=== PATIENT | male | born 1950 | race Caucasian/White ===

== ENCOUNTER → 2017-08-24 14:42 | Outpatient (CLI) | payer MEDICARE, OTHER, SELFPAY ==
[2017-08-24 15:23] LABS: PSA,Total- Diagnostic 0.02 ng/mL (0.0-4.0)
== END ==
PROVIDERS: Family Provider Internal Medicine; PCP Internal Medicine; Visit Provider Urology
DX: C61 Malignant neoplasm of prostate (principal)
CPT/HCPCS: 36415; 84153

== ENCOUNTER → 2017-11-28 11:11 | Outpatient (CLI) | payer MEDICARE, OTHER, SELFPAY ==
[2017-11-28 12:20] LABS: PSA,Total- Diagnostic 0.01 ng/mL (0.0-4.0)
== END ==
PROVIDERS: Family Provider Internal Medicine; PCP Internal Medicine; Visit Provider Urology
DX: C61 Malignant neoplasm of prostate (principal)
CPT/HCPCS: 36415; 84153

== ENCOUNTER → 2018-03-06 09:23 | Outpatient (CLI) | payer MEDICARE, OTHER, SELFPAY ==
[2018-03-06 10:34] LABS: PSA,Total- Diagnostic < 0.01 ng/mL (0.0-4.0)
== END ==
PROVIDERS: Family Provider Internal Medicine; PCP Internal Medicine; Visit Provider Urology
DX: C61 Malignant neoplasm of prostate (principal)
CPT/HCPCS: 36415; 84153

== ENCOUNTER → 2019-04-12 08:33 | Outpatient (CLI) | payer MEDICARE, OTHER, SELFPAY ==
[2019-04-02 11:03] VITALS: BMI 30.7
[2019-04-12 10:15] LABS: AST(SGOT) 59 U/L (15-37); Alanine Aminotransfer ALT/SGPT 78 U/L (16-61); Albumin, Serum 3.7 g/dL (3.2-5.0); Alkaline Phosphatase 69 U/L (45-117); Bilirubin, Direct 0.15 mg/dL (0.00-0.30); Cholesterol 217 mg/dL (200); High Density Lipoprotein 56 mg/dL; Protein, Total 7.7 g/dL (6.4-8.2); Triglycerides 203 mg/dL; Very Low Density Lipoprotein 41 mg/dL (5-40)
== END ==
PROVIDERS: Family Provider Internal Medicine; PCP Internal Medicine; Referring Provider Internal Medicine Cardiovascular Disease; Visit Provider Internal Medicine Cardiovascular Disease
DX: E78.00 Pure hypercholesterolemia, unspecified (principal)
CPT/HCPCS: 36415; 80061; 80076

== ENCOUNTER → 2019-04-16 10:50 | Outpatient (CLI) | payer MEDICARE, OTHER, SELFPAY ==
[2019-04-02 11:03] VITALS: BMI 30.7
[2019-04-16 09:24] VITALS: BMI 30.7
--- NOTE | 2019-04-16 10:52 | ECHOCS_ITS ---
Reason For Study: PRE-OP Procedure This was a 2D Doppler, Color Flow transthoracic echocardiogram. The study was technically difficult. Contrast injection was performed. Exam performed in department. Left Ventricle Normal size and thickness. The estimated ejection fraction is 65 %. Stage 1 diastolic dysfunction. No regional wall motion abnormalities noted. Right Ventricle Normal size and thickness. Normal systolic function. Atria Normal left atrium. Normal right atrium. Normal atrial septum. Mitral Valve The mitral valve is structurally normal. No prolapse or stenosis seen. Tricuspid Valve Normal tricuspid valve. Trivial tricuspid valve insufficiency. Right ventricular systolic pressure estimated to be 24 mmHg. Aortic Valve Trisinus/trileaflet aortic valve. Aortic sclerosis, no stenosis. There is no aortic stenosis. Pulmonic Valve The pulmonic valve is not well visualized. Great Vessels Normal aortic root. Normal arch. Normal inferior vena cava. Inferior vena cava collapse with sniff. Pericardium/Pleural No pericardial effusion. Medication 22 gauge I.V. with prn adaptor inserted into right arm. Diluted definity 2.0ml given slow IV push to enhance endocardial definition. MMode/2D Measurements & Calculations RVDd: 3.0 cm Ao root diam: 3.6 cm LAV(MOD-bp): 34.5 ml LAV(MOD-bp) Indexed: 18.1 ml/m2 LAV(MOD-sp2): 35.9 ml LAV(MOD-sp4): 26.4 ml SV(MOD-sp4): 61.8 ml SV(sp4-el): 67.6 ml LVAd ap4: 31.7 cm2 EDV(MOD-sp4): 99.9 ml EDV(sp4-el): 106.8 ml LVAs ap4: 16.9 cm2 ESV(MOD-sp4): 38.1 ml ESV(sp4-el): 39.1 ml EF(MOD-sp4): 61.9 % EF(sp4-el): 63.3 % LA dimension(2D): 3.8 cm LA A4 area: 11.4 cm2 RA A4 area: 11.4 cm2 Time Measurements MV dec time: 0.25 sec Doppler Measurements & Calculations MV E max morgan: 58.2 cm/sec Lat Peak E' Morgan: 9.4 cm/sec Med Peak E' Morgan: 8.3 cm/sec MV A max morgan: 92.2 cm/sec E/E' lat: 6.2 E/E' med: 7.0 MV E/A: 0.63 Ao V2 max: 112.9 cm/sec LV V1 max: 99.2 cm/sec TR max morgan: 220.4 cm/sec Ao max P.1 mmHg LV V1 max P.9 mmHg TR max P.4 mmHg Interpretation Summary The estimated ejection fraction is 65 %. Stage 1 diastolic dysfunction. Trivial tricuspid valve insufficiency. Right ventricular systolic pressure estimated to be 24 mmHg. The study was technically difficult. There is no comparison study available. Contrast injection was performed. Ordering Physician: Abdulkadir Perea Referring Physician: IRINA MCBRIDE Performed By: Marti Samuel RDCS, RVT
== END ==
PROVIDERS: Family Provider Internal Medicine; PCP Internal Medicine; Referring Provider Internal Medicine Cardiovascular Disease; Visit Provider Internal Medicine Cardiovascular Disease
DX: Z01.810 Encounter for preprocedural cardiovascular examination (principal)
CPT/HCPCS: 93306; Q9957; A4216; C8929

== ENCOUNTER → 2019-04-18 10:17 | Outpatient (CLI) | payer MEDICARE, OTHER, SELFPAY ==
[2019-04-16 09:24] VITALS: BMI 30.7
== END ==
PROVIDERS: Family Provider Internal Medicine; PCP Internal Medicine; Referring Provider Urology; Visit Provider Urology
DX: R69 Illness, unspecified (principal)

== ENCOUNTER → 2019-04-19 12:17 | Outpatient (CLI) | payer MEDICARE, OTHER, SELFPAY ==
[2019-04-02 11:03] VITALS: BMI 30.7
[2019-04-16 09:24] VITALS: BMI 30.7
--- NOTE | 2019-04-19 12:19 | STEWCON_ITS ---
Reason For Study: Pre-Operative Stress Results Protocol: Chava Protocol Maximum Predicted HR: 149 bpm Target HR: 127 bpm % Maximum Predicted HR: 85 % DurationHeart Rate Stage (mm:ss) (bpm) BP Comment Baseline 74 158/86No Chest Pain; 5 ML Diluted Definity Given Chava Protocol Stage I 3:00 91 164/82No Chest Pain Chava Protocol Stage II 3:00 101 176/84No Chest Pain Chava Protocol Stage III 3:00 118 194/80No Chest Pain Chava Protocol Stage IV 0:45 127 / No Chest Pain; Mild Dyspnea Recovery 90 142/86No Chest Pain Stress Duration: 9:45 mm:ss Maximum Stress HR: 127 bpm METS: 12 Baseline Echocardiogram Findings The estimated ejection fraction is 65 %. Stress Echo Wall motion Data Resting WM Intermediate WM Stress WM Resting Wall Motion Wall Motion Stress No regional wall motion No regional wall motion abnormalities noted. abnormalities noted. EKG Data The baseline ECG displays normal sinus rhythm. The patient exercised according to the regular Chava protocol for a total duration of 9:45. The maximum heart rate attained was 139 beats per minute. This was 93% of maximum predicted heart rate. The patient exercised into stage 4 of the Chava protocol. During stress, there were no ST or T wave changes noted to suggest ischemia. No clinical angina was noted. Interpretation Summary The estimated ejection fraction is 65 %. Normal, adequate, treadmill echocardiogram. Negative for ischemia by EKG and echocardiographic anterior. No anginal symptoms noted. Rare PVC during recovery. Hypertensive blood pressure response to age. Average exercise capacity for age. Final LVEF is 75%. Decreased sensitivity due to poor echo windows requiring Definity agent. Test terminated due to target heart rate achieved and mild dyspnea. No complications. The study was technically difficult. Contrast injection was performed. Ordering Physician: Abdulkadir Perea Referring Physician: Sonal Grace Performed By: Melany Tejeda, DIO, RVT
== END ==
PROVIDERS: Family Provider Internal Medicine; PCP Internal Medicine; Referring Provider Internal Medicine Cardiovascular Disease; Visit Provider Internal Medicine Cardiovascular Disease
DX: Z01.810 Encounter for preprocedural cardiovascular examination (principal); R94.31 Abnormal electrocardiogram [ECG] [EKG]; I10 Essential (primary) hypertension; E78.5 Hyperlipidemia, unspecified
CPT/HCPCS: 93017; 93350; Q9957; A4216; C8928

== ENCOUNTER 2019-05-01 08:41 | Day surgery (SDC) | payer MEDICARE, OTHER, SELFPAY ==
--- NOTE | 2019-04-02 12:04 | HP_ITS ---
HPI HPI History of Present Illness Surgical H&P: Yes Details: Mr. Sheets is a very pleasant 69-year-old gentleman with a history of hypertension, hyperlipidemia, prostate cancer with Warren 7 disease, PSA was 29, complete hormone deprivation therapy and radiation therapy. Status post placement of bladder seeds, gross hematuria, who is here for preoperative stratification after he was found to have an abnormal EKG, specifically a right bundle branch block. Patient supposed to have a cystoscopy, bladder biopsy fulguration and bilateral retrograde pyelograms soon. Patient underwent a stress echocardiogram on 09/29/2017 in which she went 11 minutes 51 seconds, had a hypertensive blood pressure response to exercise, had no chest pain during exercise, and had no evidence of ischemia by nuclear imaging. His EF was 62%. Echocardiogram dated 09/29/2017 showed mild concentric LVH with an EF of 55 to 60%, no significant aortic stenosis and RVSP estimated be 23 mmHg. EKG dated 10/16/2018 shows normal sinus rhythm, possible old inferior wall myocardial infarction, right bundle branch block, no acute changes. In addition the patient is a hypertensive most of his adult life ever since being in the [facility]. He is treated this with diet and exercise, and only recently required antihypertensive medications after he went through hormonal therapy for his prostate cancer. He has had several episodes of very high blood pressures but is never had a stroke, or catheterization. In addition the patient states that he snores when he sleeps, has woken himself up with his own snoring, and has had daytime somnolence. He is never had a sleep study. From a cardiac standpoint he denies any chest pain or angina but does complain of dyspnea on exertion and shortness of breath particularly when his blood pressure is quite high. He used to be on hydrochlorothiazide but this was discontinued given his prostate issues and creatinine 1.65. In our office today's blood pressure is 172/98, pulse is 72 and regular. Physical exam demonstrates clear carotids bilaterally, regular rate and rhythm, normal S1/S2, no S3 or S4. Lipids are pending. 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 Accompanied by: Allergies No Known Allergies Allergy (Verified 04/02/19 11:03) Medications Amlodipine [Norvasc] 10 mg PO DAILY 03/22/19 [History Confirmed 04/02/19] Calcium Carb/Vitamin D3/Vit K1 [Calcium + D Soft Chewable Tab] 2 ea PO DAILY 03/22/19 [History Confirmed 04/02/19] Metoprolol Tartrate [Lopressor (Beta Christiano)] 50 mg PO BID 03/22/19 [History Confirmed 04/02/19] [facility] Medical History Pre-operative cardiovascular examination (Acute) Abnormal EKG (Acute) Right bundle branch block (Chronic) Lower extremity edema (Chronic) Essential hypertension (Chronic) Hyperlipidemia (Chronic) Prostate cancer (Chronic) Gross hematuria (Acute) Diverticulosis (Chronic) Gout (Chronic) Osteoarthritis (Chronic) Surgical History H/O prostate biopsy (Chronic) History of surgery on left wrist (Chronic) History of umbilical hernia repair (Chronic) S/P bone graft (Chronic) Family History Father , Age 89 Cancer Diabetes Mother Hypertension Congestive heart failure (CHF) Cerebral aneurysm Brother Hypertension Brother Hypertension Sister Hypertension Sister Hypertension Social History (Updated 04/02/19 @ 12:04 by Abdulkadir Perea MD) Smoking Status: Never smoker alcohol intake: current details: daily vodka 6oz substance use type: does not use caffeine: Yes Type: tea Number of servings: 1 ROS Const Const: Negative for fatigue, weakness, body ache, fever(s), headache(s), chills, frequent falls, night sweats, daytime sleepiness, difficulty sleeping, excessive sweating, weight gain, weight loss, increased appetite, poor appetite, anorexia or other Eyes Eyes: Negative for blind spots, loss of peripheral vision, transient loss of vision, blurry vision, change in vision, double vision, floaters, tunnel vision or other ENT ENT: Negative for headache(s), dizziness, hearing loss, tinnitus, Nosebleed/epistaxis, balance problems, post nasal drip, lip swelling, tongue swelling, bleeding gums, hoarseness, neck pain, dry mouth or other Cardio Chest Pain: No Palpitations: No Edema: Bilateral (ankle/pedal ) Resp Respiratory: Negative for SOB with activity, SOB at rest, SOB orthopnea\SOB lying down, Coughing up blood/hemoptysis, chest congestion, pain on inspiration, snoring, stridor, wheezing, crackles, paroxysmal nocturnal dyspnea or other GI GI: Negative nausea, vomiting, heartburn, constipation, belching, bloating, cramping, vomiting blood/hematemesis, bright, red blood in stools, black,tarry stools, loose stools, Difficulty Swallowing or other : Negative for hematuria, frequent nighttime urination/ nocturia, erectile dysfunction or abnormal vaginal bleeding Musc Musc: Positive for muscle aches/ myalgia (ocasional arnav horse in [facility]); negative for muscle weakness, joint pain or balance problems Skin Skin: Negative redness, non-healing lesions, rash, unusual bruising, skin ulcer, wounds, jaundice or other Neuro Neuro: Negative for dizziness, lightheadedness, near syncope, syncope, orthostatic symptoms, frequent falls, headache(s), weakness, confusion, memory loss, restless legs, blurry vision, double vision, vertigo, seizures, lack of coordination or other Uche Hematologic/Lymphatic: Negative for easy bleeding, easy bruising, enlarged lymph nodes or other Endo Endo: Negative for fatigue, cold intolerance, heat intolerance, excessive sweating, flushing, increased thirst/drinking, increased hunger, hair loss, hair growth or other Psych Psych: Negative for anxiety, depression, thoughts of harming anyone, thoughts of harming yourself, visual hallucinations, panic attacks or audible hallucinations Allergy Allergy/Immunology: Negative for throat swelling, Negative for tongue swelling, Negative for hives, Negative for rash, Negative for lip swelling Cardiology Exam Const Appearance: cooperative, healthy appearing and no acute distress Nutritional Appearance: well nourished Orientation: alert, oriented x3 and oriented to person Head Head: normal to inspection, normocephalic and atraumatic Nose: external nose normal Face and Sinus: face symmetric Mouth: oral mucosae normal Eyes General: appearance normal, both eyes and all related structures Eyelids: eyelids normal Conjunctivae: conjunctivae normal Pupils: PERRL and normal by confrontation EOM: EOM intact bilaterally Neck Neck: normal visual inspection and full ROM Carotids: normal carotid upstroke Chest Chest inspection: normal inspection of the chest Auscultation: Bilateral: Clear to Auscultation Cardio Palpation: normal PMI Rate: regular rate Rhythm: regular rhythm Heart sounds: S1 normal and S2 normal GI GI: normal to inspection, no hepatosplenomegaly and bowel sounds present Neuro General: alert, awake, oriented x3, CN's II-XI intact bilaterally and moves all extremities Skin Skin: no rashes or lesions noted Extremities Pulses: Normal: Right Femoral Pulse, Left Femoral Pulse, Right Dorsalis Pedis Pulse, Left Dorsalis Pedis Pulse, Right Posterior Tibial Pulse, Left Posterior Tibial Pulse, Right Radial Pulse, Left Radial Pulse Lower Extremity Edema: None: Bilateral Psych Psychological: normal affect Assessment & Plan 1. Pre-operative cardiovascular examination Z01.810 Plan 1. Preoperative stratification: Although the patient has had no anginal symptoms he has several risk factors for coronary occlusive disease. In addition he has uncontrolled hypertension, and his stress test was over one year ago. I recommended he undergo a repeat echocardiogram as well as a treadmill echocardiogram to assess his LV function, exercise capacity, and blood pressure response to exercise. If this is grossly abnormal he may require diagnostic coronary angiogram. If it is negative, he will be deemed at low risk for noncardiac surgery. Orders Orders: Echo Complete Today Stress Test Echo w/o Contrast Today 2. Essential hypertension I10 Plan 2. Hypertension: Patient has chronic renal insufficiency, and is maxed out on his amlodipine. Recommended continuation of metoprolol and starting him on Coreg 6.25 mg p.o. twice daily and repeating blood pressure check in 2 weeks time. I would not recommend restarting his diuretic therapy given his chronic renal insufficiency. Also recommend the patient undergo a full sleep study to determine if he has had undiagnosed obstructive sleep apnea for all of these years that may be contributing to his hypertension. Orders Orders: 12 Lead EKG performed by [facility] Today Stress Test Echo w/o Contrast Today Polysomnography Today 3. Hyperlipidemia E78.5 Plan 3. Hyperlipidemia: Recommend obtaining a fasting lipid profile. 4. Return to office in 6 months. This note was generated using a voice recognition system and there may be incorrect words, spelling or punctuation that were not noted when reviewing the office note prior to saving. Orders Orders: Stress Test Echo w/o Contrast Today Plan Detail Other Orders Orders: 12 Lead EKG performed by [facility] Today R94.31 Lipid Profile 1 Week E78.00 Liver Profile 1 Week E78.00 Stress Test Echo w/o Contrast Today R94.31 Polysomnography Today R40.0 Follow Up +6M (Eliazar) Coding Level of Care Code Off vis,new,level 4 Diagnoses Pre-operative cardiovascular examination Z01.810 Essential hypertension I10 Hyperlipidemia E78.5 Coding Level of Care Code Off vis,new,level 4 Diagnoses Pre-operative cardiovascular examination Z01.810 Essential hypertension I10 Hyperlipidemia E78.5 Supplemental Info Supplemental Information Diagnostics Electrocardiogram 04/02/19 Chest X-Ray 07/13/16 04/02/19 1204 <Electronically signed by Abdulkadir Perea MD> Date _ Abdulkadir Perea MD
[2019-04-16 09:24] VITALS: BMI 30.7
[2019-04-30 09:55] VITALS: BMI 30.7
--- NOTE | 2019-05-01 | IMM_PTH ---
PATIENT: LILLIAN GILLIAM [place] [facility] [id number] AGE/SX: 69/M ROOM: RE05/01/[address]: Dr. Bandar Zarate MD : 1950 BED: DIS: 05/01/2019 SPEC #: [id number] RECD: 05/02/19 11:01 STATUS: LEILA REQ #: [id number] BALBINA: 05/01/19 00:[address]: Bandar Zarate DEPT: IMMUNOHISTOCHEMISTRY RECD BY: Sujey Thakur ENTERED: 05/02/19 11:02 SP TYPE: IMMUNO OTHR DR: Dr. Sonal Grace MD Tissues: Urinary bladder, NOS Procedures: CK7 (add) CD44 (add) CK20 (initial) PHYSICIAN & INSTITUTION [place] [address] SPECIMEN INFORMATION: Tissue Source: Bladder biopsy Clinical Info: Gross hematuria Specimen Number: [id number] CPT code: 64327, 65718 x2 METHODOLOGY: Deparaffinized sections of prefer/formalin-fixed tissue or PAP/DQ stained slides are incubated with monoclonal/polyclonal antibodies/oligonucleotide probes. Localization is made via biotin free immunoperoxidase method. Appropriate controls are performed and reacted as expected. Results on target cell population are indicated in the following table: RESULTS: ANTIBODY / CLONE RESULT CK20 (KS20.8) positive anti-CD44 (SP37) positive CK7 (OV-TL12/30) positive These tests were developed and their performance characteristics determined by [facility]. They may not have been cleared or approved by the U.S. Food and Drug Administration. The FDA has determined that such clearance or approval is not necessary. The above immunohistochemical/dualISH markers are ordered and reviewed by the Pathologist. INTERPRETATION: Urinary bladder, biopsy: Focal atypical urothelium. AM:gary 05/03/19 Case has been reviewed in consultation with Dr. Teran who concurs with the above diagnosis. IDC:BRO
[2019-05-01 09:01] VITALS: BP 141/83; PULSE 65; RESP 16; TEMP 36.7; O2SAT 97; BMI 30.5
[2019-05-01 09:08] LABS: Hematocrit 44.1 % (40-54); Hemoglobin 15.6 g/dL (13.0-16.5); Mean Corp Hgb Conc 35.4 g/dL (32-36); Mean Corpuscular Hgb 35.9 pg (27.0-32.0); Mean Corpuscular Volume 101.4 fL (80-94); Mean Platelet Vol. 9.7 fl (6.2-12.0); Platelet Count 173 K/mm3 (150-450); RBC Distribution Width CV 11.5 % (11.6-14.6); RBC Distribution Width SD 43.1 fl (35.1-43.9); Red Blood Count 4.35 M/mm3 (4.6-6.2); White Blood Count 4.6 K/mm3 (4.4-11.0)
[2019-05-01] MEDS: Lactated Ringers 1,000 ML 100 ML IV (09:10)
--- NOTE | 2019-05-01 09:20 | BLA_PTH ---
PATIENT: LILLIAN GILLIAM LOC: [facility] – [place] U#:[id number] AGE/SX: 69/M ROOM: RE05/01/[address]: Dr. Bandar Zarate MD : 1950 BED: DIS: 05/01/2019 SPEC #: [id number] RECD: 05/01/19 11:20 STATUS: LEILA REeGrman #: [id number] BALBINA: 05/01/19 09:[address]: Bandar Zarate DEPT: SURGICAL PATHOLOGY RECD BY: Joaquim Michael ENTERED: 05/01/19 11:41 SP TYPE: BLADDER BX OTHR DR: Dr. Sonal Grace MD Tissues: Urinary bladder, NOS Procedures: Surgery Specimen Level IV HEADER OPERATION: Cystoscopy, bladder biopsy, fulguration, bilateral retrograde PRE-OP DIAGNOSIS: Gross hematuria TISSUE SUBMITTED: Bladder biopsy MICROSCOPIC DIAGNOSIS Urinary bladder, biopsy: Mild urothelial atypia. See comment. AM:gary 05/02/19 COMMENT Immunohistochemistry ([id number]) supports the above diagnosis. Case has been reviewed in consultation with Dr. Teran who concurs with the above diagnosis. IDC:SJ MICROSCOPIC DESCRIPTION Slides are reviewed. GROSS DESCRIPTION Received in fixative is one container labeled with the patient's name and designated bladder biopsy. The specimen consists of one irregular fragment of light galicia soft tissue that measures 0.3 x 0.2 x 0.1 cm. The specimen is totally submitted in one cassette. / BRO:gary 05/01/19 TC:? CPT: 41986
[2019-05-01] MEDS: Cefazolin 2 GM in 0.9% Normal Saline 100 ML IV (09:48)
[2019-05-01] MEDS: Lubricating Jelly 60 GM Tube 30 GM TOPICAL (10:12)
--- NOTE | 2019-05-01 10:35 | DCINST_ITS ---
Discharge Diet: Light diet - advance as tolerated Discharge Activity: Return to Normal Activity, May not drive while taking narcotic pain medications. Call your doctor if your incision/area has: Continuous Slow Oozing, Sudden Increased Bleeding, Increased Pain/ Swelling, Increased Redness, Foul Smelling Discharge Call your doctor if you observe: Fever of 101 or Higher Suture Line Care: Avoid Pulling/Pushing, Avoid Pinching/Bending Catheter: Chavez to leg bag, Chavez to large bag Drain: [place] Allergies/Adverse Reactions: Allergies No Known Allergies Allergy (Verified 05/01/19 08:59) Medications to take at Discharge Amlodipine [Norvasc] 10 mg PO DAILY 03/22/19 Calcium Carb/Vitamin D3/Vit K1 [Calcium + D Soft Chewable Tab] 2 ea PO DAILY 03/22/19 Carvedilol 12.5 mg PO BID 05/01/19 Ciprofloxacin [Cipro] 500 mg PO BID #6 tab 05/01/19 Hydrocodone/Acetaminophen [Hawkeye 5-325 Tablet] 1 ea PO Q4H PRN PRN 3 Days #10 tab 05/01/19 Phenazopyridine [Pyridium] 100 mg PO TID #14 tab 05/01/19 Primary Care Physician: Sonal Grace [Primary Care Provider] - Test Results: Test results from this visit will be discussed in further detail at your follow- up appointment, if applicable. Please Follow Up With: Bandar Zarate MD When: in 2 weeks, please call to make an appointment.
--- NOTE | 2019-05-01 10:39 | PCM.OPRPT ---
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 Stricture in the bulbar urethra very tight. Surgery/Procedure Performed:: Cystoscopy, direct vision internal urethrotomy of a urethral stricture in the bulbar urethra, bilateral retrograde pyelogram, interpretation fluoroscopic images, cystoscopy bladder biopsy and fulguration of radiation cystitis about an area of 3 cm x 5 cm in the anterior part of the bladder near the bladder neck. Description of Surgical Findings:: 69-year-old male has a history of prostate cancer treated with radiation therapy presented to the office with gross hematuria and bleeding recommended we taken to surgery to do the evaluation. He also describes having a weak flow and difficulty going to the bathroom and some intermittency. 69-year-old male taken back to the operating room, after induction of anesthesia he was placed in dorsolithotomy position, penis and testicles were prepped and draped in usual fashion, went into the bladder with a 21 Sinhala rigid cystourethroscope, the meatus was open the pendulous urethra was fine went down to the bulbar urethra and he had a tight stricture back to back in the bulbar urethra that very tight stricture, because of this I switched over to the urethrotome and used a double blade and incised the first urethral stricture at the 12 o'clock position and then incised a second urethral stricture stricture at the 12 o'clock position. After incising both the urethral strictures and I was able to get into the prostate sphincter was identified the verumontanum was identified went into the bladder and then removed the scope went back in with a 21 Sinhala rigid cystourethroscope at this point is able to get to the area of stricture quite easily and then identified the bladder did a cystoscopy with 70 and 30 degree lens and the trigone was identified right and left ureteral orifice identified up in the anterior bladder neck area of the bladder severe inflammation bulbous bullous erythema and inflammation of the bladder neck area of the latter was identified consistent with radiation cystitis. I then used a flexible biopsy forceps to biopsy. I do not think a biopsy would be cancerous appear to be more of inflammation. I then used a Bugbee electrode I had to bend the electrode quite a bit and they use a 70 degree lens in order to visualize the area and with the bent electrode and I was able to cauterize the area at the anterior urethra right at the bladder neck took quite some time to cauterize this had extensively cauterized it was about a 3 x 5 cm area that was cauterized completely transurethrally after the whole area of radiation cystitis was cauterized then I drained the bladder is no active bleeding I then switched back over to the 30 degree lens and identified the trigone identified the left ureteral orifice cannulated this with a wire and a Glidewire to the retrograde Polygram this was normal after looking at this time went to the right side cannulated the right ureter orifice to the retrograde pyelogram this was normal. So after cauterizing the radiation cystitis with retrograde pocket was normal we found dense urethral stricture in the bulbar urethra that were cut open we will believe the catheter in for 2 weeks let this heal and upright will teach him self intermittent catheterization to keep the stricture is open. He will go home with a catheter and follow-up in 2 weeks. Type of Anesthesia:: General Drains: everett 18 fr - Admit VTE Documentation VTE Present on Admission: No VTE Mechan Device Prophylaxis: SCD's
[2019-05-01 10:44] VITALS: BP 141/83; BP 146/89; PULSE 71; RESP 14; TEMP 36.9; O2SAT 96
[2019-05-01 11:00] VITALS: BP 141/83; BP 159/85; PULSE 70; RESP 16; O2SAT 93
[2019-05-01 11:10] VITALS: BP 141/83; BP 151/88; PULSE 71; RESP 16; TEMP 36.7; O2SAT 93
[2019-05-01 12:08] VITALS: BP 141/83; BP 154/92; PULSE 70; RESP 16; TEMP 36.8; O2SAT 96
--- NOTE | 2019-05-03 07:37 | HP.PCM_ITS ---
History of Present Illness Date of Admission: 05/03/19 Chief Complaint: Radiation cystitis difficulty with urination The patient is a 69 year old male with a history of prostate cancer treated with radiation in the past presents to the office with gross hematuria difficulty with urination he set up for surgery however he had an EKG changes of had to have preoperative clearance by cardiology. He is now cleared and we can proceed with a cystoscopy and biopsy and fulguration of the bladder and evaluation of the urinary tract. Past Medical History Past Medical History (Chronic Problems): Chronic Problems (Last Reviewed 04/10/19 @ 16:40 by Stormy Gallardo) Right bundle branch block (Chronic) Lower extremity edema (Chronic) Essential hypertension (Chronic) Hyperlipidemia (Chronic) Prostate cancer (Chronic) Completed hormone deprivation and radiation therapy Medical History: Medical History (Last Reviewed 04/10/19 @ 16:40 by Stormy Gallardo) Pre-operative cardiovascular examination (Acute) Z01.810 Abnormal EKG (Acute) R94.31 Inferior infarct, age undetermined, RBBB, T wave inversion evident in inferior and anterior leads per ekg done 10/16/2018 @ [facility] Right bundle branch block (Chronic) I45.10 Lower extremity edema (Chronic) R60.0 Essential hypertension (Chronic) I10 Hyperlipidemia (Chronic) E78.5 Prostate cancer (Chronic) C61 Completed hormone deprivation and radiation therapy Gross hematuria (Acute) R31.0 Diverticulosis K57.90 Gout M10.9 Osteoarthritis M19.90 Allergies No Known Allergies Allergy (Verified 05/01/19 08:59) Home Medications: Ambulatory Orders Medication Instructions Recorded Amlodipine [Norvasc] 10 mg PO DAILY 03/22/19 Calcium Carb/Vitamin D3/Vit K1 2 ea PO DAILY 03/22/19 [Calcium + D Soft Chewable Tab] Carvedilol 12.5 mg PO BID 05/01/19 Ciprofloxacin [Cipro] 500 mg PO BID #6 tab 05/01/19 Hydrocodone/Acetaminophen [[place] 1 ea PO Q4H PRN PRN 3 Days #10 tab 05/01/19 5-325 Tablet] Phenazopyridine [Pyridium] 100 mg PO TID #14 tab 05/01/19 Surgical History: Surgical History (Last Reviewed 04/10/19 @ 16:40 by Stormy Gallardo) H/O prostate biopsy Z98.890 2012,2016,2017 History of surgery on left wrist Z98.890 History of umbilical hernia repair Z98.890, Z87.19 S/P bone graft Z98.890 Left leg age 15 Smoking Status: Never smoker Tobacco Use: Non-smoker VTE Information - Inpt Only VTE Present on Admission: No VTE Mechan Device Prophylaxis: SCD's - Physical Exam General: Alert, Oriented x3, Cooperative HEENT: Atraumatic, PERRLA, EOMI, Normocephalic Neck: Supple, No JVD, Negative Carotid Bruits Lungs: Clear to auscultation, Normal air movement Cardiovascular: Regular rate, No murmurs Abdomen: Bowel Sounds Present, Soft, Non Tender Extremities: No edema, Capillary Refill Less than 3 Seconds Skin: No rashes, No breakdown Musculoskeletal: No Tenderness to Palpation of Joints or Extremities Neurological: Cranial nerves II-XII grossly intact Psych/Mental Status: Normal Affect, Appropriate Vital Signs Temp Pulse Resp BP Pulse Ox 98.2 F 70 16 154/92 H 96 05/01/19 12:08 05/01/19 12:08 05/01/19 12:08 05/01/19 12:08 05/01/19 12:08 Oxygen Delivery Method Room Air Weight: 85.9 kg Body Mass Index (BMI) 30.5 Intake and Output for Last 24 Hours 05/01/19 05/02/19 05/03/19 23:59 23:59 23:59 Intake Total 910 / 910 Balance 910 / 910 Assessment/Plan All Active Problems (Last Reviewed 04/10/19 @ 16:40 by Stormy Gallardo) Pre-operative cardiovascular examination (Acute) Abnormal EKG (Acute) Gross hematuria (Acute) Plan for cystoscopy evaluation of urinary tract biopsy and fulguration suspected radiation cystitis.
== END 2019-05-01 12:10 | disposition home or self-care (01) ==
LOC: SDC 08:42 → AC 08:43
PROVIDERS: Anesthesiology; Family Provider Internal Medicine; PCP Internal Medicine; Referring Provider Urology; Visit Provider Urology
PROC: 0TBB8ZX Excision of Bladder, Via Natural or Artificial Opening Endoscopic, Diagnostic (ICD-10-PCS; CPT 52005; principal; 2019-05-01 09:10)
DX: N30.41 Irradiation cystitis with hematuria (principal); N35.812 Other bulbous urethral stricture, male; I10 Essential (primary) hypertension; I45.10 Unspecified right bundle-branch block; E78.5 Hyperlipidemia, unspecified; K57.90 Diverticulosis of intestine, part unspecified, without perforation or abscess without bleeding; M1A.9XX0 Chronic gout, unspecified, without tophus (tophi); M19.90 Unspecified osteoarthritis, unspecified site; Z79.899 Other long term (current) drug therapy; Z85.46 Personal history of malignant neoplasm of prostate; Z92.3 Personal history of irradiation
CPT/HCPCS: 00910; 52005; 52204; 52235; 52276; 36415; 76000; 85027; 88305; 88341; 88342; J7120; C1769; J2405

== ENCOUNTER → 2019-09-18 14:59 | Outpatient (CLI) | payer MEDICARE, OTHER, SELFPAY ==
[2019-09-18 17:33] LABS: PSA,Total- Diagnostic 0.02 ng/mL (0.0-4.0)
== END ==
PROVIDERS: PCP Internal Medicine; Referring Provider Urology; Visit Provider Urology
DX: C61 Malignant neoplasm of prostate (principal)
CPT/HCPCS: 36415; 84153

== ENCOUNTER → 2019-12-24 10:40 | Outpatient (CLI) | payer MEDICARE, OTHER, SELFPAY ==
[2019-12-24 11:29] LABS: PSA,Total- Diagnostic 0.04 ng/mL (0.0-4.0)
== END ==
PROVIDERS: PCP Internal Medicine; Visit Provider Nurse Practitioner Adult Health
DX: C61 Malignant neoplasm of prostate (principal)
CPT/HCPCS: 36415; 84153

== ENCOUNTER → 2020-02-27 15:00 | Outpatient (CLI) | payer MEDICARE, OTHER, SELFPAY ==
[2020-02-27 15:54] LABS: PSA,Total - Annual Screen 0.06 ng/mL (0.00-4.00)
== END ==
PROVIDERS: Family Provider Internal Medicine; PCP Internal Medicine; Referring Provider Urology; Visit Provider Urology
DX: C61 Malignant neoplasm of prostate (principal)
CPT/HCPCS: 36415; 84153; G0103